=== PATIENT | male | born 1965 | race Caucasian/White ===

== ENCOUNTER 2018-12-06 20:44 | Emergency (ER) | payer BC ==
--- NOTE | 2018-12-06 21:15 | ED ---
HPI Chest Pain - HPI Summary HPI Summary: This patient is a 53 year old M presenting to ED with a chief complaint of chest tightness since 1700. At 1700, patient noted chest tightness/pressure when taking a deep breath. The tightness did not get better after he ate dinner at 1900. He feels like something is stuck in his chest. It has not gotten worse or better. There is only pain upon deep breathing. Patient denies SOB, nausea, vomiting, dizziness, diaphoresis, lightheadedness, leg swelling. 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 Patient denies history of heart disease. FHx of MS in father at age 60. The patient rates the pain 3/10 in severity. Symptoms aggravated by deep breathing. Symptoms alleviated by nothing. - History of Current Complaint Chief Complaint: EDChestPainROMI Time Seen by Provider: 12/06/18 21:04 Hx Obtained From: Patient Onset/Duration: Started Hours Ago - 1700 today, Still Present Time of Onset: 17:00 Timing: Constant, Lasting Hours - Since 1700 Initial Severity: Mild Current Severity: Mild Pain Intensity: 3 Pain Scale Used: 0-10 Numeric Chest Pain Location: Upper Sternal Character: Pressure/Squeezing, Tightness Aggravating Factor(s): Deep Breaths Alleviating Factor(s): Nothing Associated Signs and Symptoms: Positive: Chest Pain. Negative: Dizziness, Shortness of Breath, Swelling, Diaphoresis, Nausea, Calf Pain/Swelling, Vomiting - Allergy/Home Medications Allergies/Adverse Reactions: Allergies Allergy/AdvReac Type Severity Reaction Status Date / Time No Known Allergies Allergy Verified 12/06/18 21:25 PMH/Surg Hx/FS Hx/Imm Hx Endocrine/Hematology History: Reports: Hx Thyroid Disease - HYPOTHYROID Denies: Hx Diabetes Cardiovascular History: Denies: Hx Hypercholesterolemia, Hx Hypertension Respiratory History: Denies: Hx Chronic Obstructive Pulmonary Disease (COPD), Other Respiratory Problems/Disorders Sensory History: Denies: Hx Legally Blind, Hx Deafness Opthamlomology History: Denies: Hx Legally Blind EENT History: Denies: Hx Deafness - Surgical History Surgery Procedure, Year, and Place: Right Knee I/D for a bad knee infection 2005, RIGHT KNEE MENSISCUS REPAIR, HERNIA REPAIR Infectious Disease History: No Infectious Disease History: Reports: Hx Hepatitis - C antibody positive Denies: History Other Infectious Disease, Traveled Outside the [place] in Last 30 Days - Family History Known Family History: Positive: Cardiac Disease, Hypertension, Diabetes - Maternal Grandmother - Social History Alcohol Use: Occasionally Hx Substance Use: No Substance Use Type: Reports: None Hx Tobacco Use: No Smoking Status (MU): Never Smoked Tobacco Review of Systems Negative: Skin Diaphoresis Positive: Chest Pain - Tightness Negative: Shortness Of Breath Negative: Vomiting, Nausea Musculoskeletal: Negative - Leg swelling Neurological: Negative - Dizziness, lightheadedness All Other Systems Reviewed And Are Negative: Yes Physical Exam - Summary Physical Exam Summary: Appearance: Well-appearing, Well-nourished, lying in bed comfortably Skin: Warm, dry, no obvious rash Eyes: sclera anicteric, no conjunctival pallor ENT: mucous membranes moist, pharynx appears normal Neck: Supple, nontender Respiratory: Clear to auscultation, no signs of respiratory distress Cardiovascular: Normal S1, S2. No murmurs. Normal distal pulses in tibial and radial bilaterally. Abdomen: Soft, nontender, normal active bowel sounds present Musculoskeletal: Normal, Strength/ROM Intact Neurological: A&Ox3, awake and alert, mentation is normal, speech is fluent and appropriate Psychiatric: affect is normal, does not appear anxious or depressed Triage Information Reviewed: Yes Vital Signs On Initial Exam: Initial Vitals Temp Pulse Resp BP Pulse Ox 98.1 F 77 15 152/83 100 12/06/18 20:50 12/06/18 20:50 12/06/18 20:50 12/06/18 20:50 12/06/18 20:50 Vital Signs Reviewed: Yes Procedures - Sedation Patient Received Moderate/Deep Sedation with Procedure: No Diagnostics - Vital Signs Vital Signs Temp Pulse Resp BP Pulse Ox 12/06/18 20:50 98.1 F 77 15 152/83 100 - Laboratory Result Diagrams: 12/06/18 22:53 12/06/18 22:53 Lab Statement: Any lab studies that have been ordered have been reviewed, and results considered in the medical decision making process. - Radiology CXR Radiology Interpretation Completed By: ED Physician Summary of Radiographic Findings: No acute processes, pending official radiology report. - EKG 2043 Cardiac Rate: NL - 71 BPM EKG Rhythm: Sinus Rhythm ST Segment: Normal Ectopy: None Summary of EKG Findings: NSR at 72 BPM, P waves, QRS complex, and T waves are within normal limits, T waves and intervals are normal, no ischemic changes. This is a normal EKG. Dr. Patino has reviewed and interpreted this EKG. Re-Evaluation - Re-Evaluation First Eval Re-Evaluation Time: 01:41 Change: Improved Comment: Patient reports feeling well. Second Eval Re-Evaluation Time: 02:15 Comment: Discussed results with patient. Patient will be discharged home with dx of chest pain. Patient understands and agrees with this plan. Chest Pain Course/Dx - Course Course Of Treatment: This patient is a 53 year old M presenting to ED with a chief complaint of chest tightness since 1699. EKG at 2043 revealed NSR at 72 BPM, P waves, QRS complex, and T waves are within normal limits, T waves and intervals are normal, no ischemic changes. This is a normal EKG. In the ED course, patient received Bentyl and Xylocaine. CXR revealed no acute processes, pending official radiology report. Troponin negative x 2. Discussed results with patient. Patient will be discharged home with dx of chest pain. Patient understands and agrees with this plan. - Diagnoses Provider Diagnoses: Chest pain Discharge ED - Sign-Out/Discharge Documenting (check all that apply): Patient Departure - discharge - Discharge Plan Condition: Good Disposition: HOME Patient Education Materials: Chest Pain (ED) Referrals: Adebayo Elliott MD [Primary Care Provider] - 3 Days Additional Instructions: Followup with your doctor this week, he may want to send you for further testing but for now we did not find any sign of heart disease causing your pain. - Billing Disposition and Condition Condition: GOOD Disposition: Home - Attestation Statements Document Initiated by Lashawn: Yes Documenting Scribe: Adebayo Berg Provider For Whom Lashawn is Documenting (Include Credential): Dain Patino MD Scribbrian Attestation: I, Adebayo Berg, scribed for Dain Patino MD on 12/07/18 at 0632. Scribe Documentation Reviewed: Yes Provider Attestation: The documentation as recorded by the Adebayo mosley accurately reflects the service I personally performed and the decisions made by me, Dain Patino MD Status of Scribe Document: Viewed
[2018-12-06] MEDS ORDERED: Lidocaine 2% VISCOUS* 15 ML UDC PO ONE (21:47)
[2018-12-06] MEDS ORDERED: Dicyclomine CAP* 10 MG PO ONE (21:48)
[2018-12-06 23:02] LABS: ABS Basophils 0.1 10^3/ul (0-0.2); ABS Eosinophils 0.2 10^3/ul (0-0.6); ABS Lymphocytes 1.5 10^3/ul (1.0-4.8); ABS Monocytes 0.4 10^3/ul (0-0.8); ABS Neutrophils 3.2 10^3/ul (1.5-7.7); Hematocrit 44 % (42-52); Hemoglobin 15.4 g/dL (14.0-18.0); Lymphocyte % 27.4 %; Mean Corpuscular HGB Conc 35 g/dL (31-36); Mean Corpuscular Hemoglobin 33 pg (27-31); Mean Corpuscular Volume 94 fL (80-94); Mean Platelet Volume 8.3 fL (7.4-10.4); Platelet Count 157 10^3/uL (150-450); Red Blood Count 4.68 10^6 /uL (4.18-5.48); Red Cell Distribution Width 13 % (10-15); White Blood Count 5.4 10^3/uL (3.5-10.8)
[2018-12-06 23:18] LABS: Albumin 4.1 g/dL (3.2-5.2); Albumin/Globulin Ratio 1.4 (1-3); BUN/Creatinine Ratio 14.4 (8-20); Calcium 9.2 mg/dL (8.6-10.3); Potassium 3.9 mmol/L (3.5-5.0); Total Bilirubin 0.5 mg/dL (0.2-1.0); Total Protein 7.1 g/dL (6.4-8.9)
[2018-12-07 02:26] VITALS: BP 120/71
== END 2018-12-07 02:25 | disposition home or self-care (01) ==
LOC: ED 20:44
DX: R07.9 Chest pain, unspecified (principal); E03.9 Hypothyroidism, unspecified
CPT/HCPCS: 36415; 71046; 80053; 84484; 85025; 93005; 99283; A9270-GY